=== PATIENT | female | born 1945 | race Caucasian/White ===

== ENCOUNTER 2020-07-01 21:54 | Inpatient (IN) | payer MEDICARE, OTHER ==
--- NOTE | 2020-07-01 22:16 | RAD ---
XR Chest 1 View Portable History: Chest pain Comparison: None. Findings: Lungs are clear. No pneumothorax or effusion. Cardiac silhouette and mediastinal contours a re within normal limits. No acute osseous abnormality. Impression: No acute intrathoracic abnormality.
[2020-07-01 22:19] LABS: #Basophils 0.2 thou/uL (0.0-0.2); #Eosinphils 0.5 thou/uL (0.0-0.7); #Lymphocytes 2.4 thou/uL (1.20-3.40); #Monocytes 0.7 thou/uL (0.11-0.59); #Neutrophils 7.8 thou/uL (1.40-6.50); %Basophils 1.5 % (0.0-1.0); %Eosinophils 4.1 % (0.0-10.0); %Lymphocytes 20.8 % (21.0-51.0); %Monocytes 6.4 % (0.0-10.0); %Neutrophils 67.2 % (42.0-75.0); Hemoglobin 9.8 g/dL (12.0-16.0); Mean Corpuscular HGB CONC 30.9 g/dL (32.0-36.0); Mean Corpuscular Hemoglobin 24.3 pg (27.0-31.0); Mean Corpuscular Volume 78.6 fL (78.0-98.0); Mean Platelet Volume 9.7 fL (7.4-10.4); Platelet Count 296 thou/uL (130-400); RBC Distribution Width 15.4 % (11.5-14.5); Red Blood Cell (RBC) Count 4.04 mill/uL (4.20-5.40); White Blood Cell (WBC) Count 11.6 thou/uL (4.8-10.8)
[2020-07-01 22:39] LABS: ALT (SGPT) 14 U/L (8-55); AST (SGOT) 16 U/L (5-34); Albumin 3.4 g/dL (3.4-4.8); Alkaline Phosphatase 126 U/L (40-110); Anion Gap 13 mmol/L (10-20); BUN (Urea Nitrogen) 15 mg/dL (9.8-20.1); Bilirubin, Total 0.2 mg/dL (0.2-1.2); Calc. Creatinine Clearance 0 mL/min (70-130); Calcium 8.7 mg/dL (7.8-10.44); Carbon Dioxide 27 mmol/L (23-31); Chloride 107 mmol/L (98-107); Globulin 2.4 g/dL (2.4-3.5); Glucose 114 mg/dL (83-110); Potassium 4.2 mmol/L (3.5-5.1); Protein, Total 5.8 g/dL (6.0-8.3); Sodium 143 mmol/L (136-145)
[2020-07-01] MEDS ORDERED: Acetaminophen 500 MG TAB ONE (23:20)
[2020-07-01] MEDS ORDERED: Metoprolol Tartrate 5 MG/5 ML VIAL ONE (23:26)
--- NOTE | 2020-07-02 00:17 | PDOC.HHP ---
Hospitalist HPI - History of Present Illness Heart palpitations History of Present Illness: Patient is a 75-year-old female with a past medical history significant for hypothyroidism, hyperlipidemia and obesity that presents to the emergency department for the above complaint. The patient reports feeling her heart racing on 2 different occasions today. She reports the first episode was in the afternoon and the second episode was at about 8:00 in the evening while sitting on the couch at home. When she felt her pulse, it was approximately 140 beats per minute. The patient reports some associated lightheadedness and headache. Denies vertigo or syncope. She says the headache is band-like and denies any changes in vision or speech. She denies any focal motor deficits to her extremities. She checked her blood pressure and reports that the top number was in the [id number]. She does not have a history of hypertension. She denies any chest pain or swelling to her lower extremities. She denies any shortness of breath, cough or wheezing. She has no history of DVT/PE. She also reports feeling fatigued over the past 3 to 4 months. She says that after taking a shower sometimes she feels tired and has to rest. She says that this does not happen every day, but it is happening often. She says since Covid, she has been staying at home and thought it was from being deconditioned. She denies any recent fever or illness. She has no known Covid contacts. Denies any abdominal pain, nausea, vomiting, diarrhea, hematochezia/melena. She denies any dysuria or hematuria. ED Course: VITAL SIGNS TueJul 01, 2020 22:01 JAMES Murphy Cory BP: 178/87, MAP: 117, Pulse: 108, Resp: 24, Temp: 97.7 (Oral), Pain: 0, O2 sat: 100 on (Room Air), Time: 07/01/2020 22:01. VITAL SIGNS TueJul 01, 2020 23:24 JAMES Lindsey Alicia BP: 161/84, Pulse: 81, Resp: 22, Pain: 0, O2 sat: 100 on (Room Air), Time: 07/01/2020 23:24. VITAL SIGNS TueJul 02, 2020 00:00 JAMES Lindsey Alicia BP: 148/67, Pulse: 69, Resp: 19, Temp: 98.2 (Oral), Pain: 0, O2 sat: 100 on (Room Air), Time: 07/02/2020 00:00. Medications: metoprolol tartrate intravenous 5 mg IV Push Given 23:32 07/01/2020 Tylenol Extra Strength 1 g Oral Given 23:28 07/01/2020 Hospitalist ROS - Review of Systems All other systems reviewed; all pertinent +/- noted in HPI/Subj - Medication Medications: aspirin oral TABLET : Strength - 81 mg : ORAL Patient Dose: 1 tab(s) Oral once a day. Synthroid oral TABLET : Strength - 100 mcg : ORAL Patient Dose: 100 mcg Oral once a day. atorvastatin TABLET : Strength - 40 mg : ORAL Patient Dose: 20 mg Oral once a day (at bedtime). Allergies: NKDA Hospitalist History - Past Medical History Cardiac: reports: Hyperlipidemia ENT: reports: Other (Bilateral eye blindness) Endocrine: reports: Hypothyroidism (Status post thyroidectomy) - Past Surgical History Past Surgical History: reports: Cholecystectomy, Other (Prolapse vagina, rectocele, hysterectomy and oophorectomy, left eye surgery, thyroidectomy) - Family History Family History: denies: cardiac disorder, cerebrovascular accident - Social History Smoking Status: Never smoker Alcohol: reports: None Drugs: reports: none Living Situation: With Family Activity level: uses cane/walker - Exam General Appearance: NAD, awake alert. negative: ill appearing Eye: anicteric sclera ENT: normocephalic atraumatic, moist mucosa Neck: supple, symmetric Heart: RRR, no gallops, no rubs, normal peripheral pulses, II/IV Respiratory: CTAB, no wheezes, no rales, no ronchi, no tachypnea Gastrointestinal: soft, non-tender, non-distended, normal bowel sounds, no bruit, no guarding, no rigidity Extremities: no cyanosis, 1+ LE edema Skin: no rashes Neurological: no focal deficits Musculoskeletal: normal tone, normal strength Psychiatric: normal affect, A&O x 3 Hospitalist Results - Labs Result Diagrams: 07/01/20 22:04 07/01/20 22:04 Lab results: WBC 11.6 thou/uL (4.8-10.8) H 07/01/20 22:04 Hgb 9.8 g/dL (12.0-16.0) L 07/01/20 22:04 Hct 31.8 % (36.0-47.0) L 07/01/20 22:04 MCV 78.6 fL (78.0-98.0) 07/01/20 22:04 Plt Count 296 thou/uL (130-400) 07/01/20 22:04 Neutrophils % 67.2 % (42.0-75.0) 07/01/20 22:04 Sodium 143 mmol/L (136-145) 07/01/20 22:04 Potassium 4.2 mmol/L (3.5-5.1) 07/01/20 22:04 Chloride 107 mmol/L (98-107) 07/01/20 22:04 Carbon Dioxide 27 mmol/L (23-31) 07/01/20 22:04 BUN 15 mg/dL (9.8-20.1) 07/01/20 22:04 Creatinine 0.75 mg/dL (0.6-1.1) 07/01/20 22:04 Glucose 114 mg/dL (83-110) H 07/01/20 22:04 Calcium 8.7 mg/dL (7.8-10.44) 07/01/20 22:04 Total Bilirubin 0.2 mg/dL (0.2-1.2) 07/01/20 22:04 AST 16 U/L (5-34) 07/01/20 22:04 ALT 14 U/L (8-55) 07/01/20 22:04 Alkaline Phosphatase 126 U/L (40-110) H 07/01/20 22:04 Troponin I Less than 0.010 ng/mL (< 0.028) 07/01/20 22:04 B-Natriuretic Peptide 72.1 pg/mL (0-100) 07/01/20 22:04 Serum Total Protein 5.8 g/dL (6.0-8.3) L 07/01/20 22:04 Albumin 3.4 g/dL (3.4-4.8) 07/01/20 22:04 - EKG Interpretation EK lead EKG interpreted by Emergency Department Physician at time of study, 12 lead EKG shows, sinus tachycardia, Rate (beats per minute): 104, with no ectopics, Conduction normal, ST segments normal, T waves normal, Free Soil normal, Clinical impression: Normal EKG. - Radiology Interpretation Chest x-ray Status: report reviewed by me Additional Comment: Impression: No acute intrathoracic abnormality. Hospitalist H&P A/P - Problem (1) Tachycardia Code(s): R00.0 - TACHYCARDIA, UNSPECIFIED Status: Acute (2) Heart palpitations Code(s): R00.2 - PALPITATIONS Status: Acute (3) HLD (hyperlipidemia) Code(s): E78.5 - HYPERLIPIDEMIA, UNSPECIFIED Status: Chronic (4) Morbid obesity with BMI of 40.0-44.9, adult Code(s): E66.01 - MORBID (SEVERE) OBESITY DUE TO EXCESS CALORIES; Z68.41 - BODY MASS INDEX [BMI]40.0-44.9, ADULT Status: Chronic (5) Hypothyroidism Code(s): E03.9 - HYPOTHYROIDISM, UNSPECIFIED Status: Chronic - Plan Plan: 75/F with PMH hypothyroidism presents for heart palpitations. Admit to telemetry floor, inpatient status. Expected length of stay greater than 2 midnights. Presented hypertensive, tachycardic, tachypneic, NL SPO2, afebrile. EKG sinus tachycardia nonspecific T wave changes. CXR no acute process. Initial troponin negative, BNP 72.1, TSH 3.22. WBC 11.6, Hgb 9.8, HCT 31.8, platelets 296. #Tachycardia Wells PE score 1.5, low risk Responded to metoprolol 5 mg IVP x1 dose in ER. Trend troponins. Give ASA 243 mg. Check mag level, UA. Obtain echocardiogram. Consult cardiology. #Heart palpitations Likely related to problem #1. #HLD Restart home dose atorvastatin. #Morbid Obesity Chronic. #Hypothyroidism Status post thyroidectomy. TSH unremarkable. Restart home dose Synthroid. Lovenox for DVT prophylaxis. Pepcid for GI prophylaxis. Full code. Discussed the case with Dr. Dominic Turner.
[2020-07-02 01:36] LABS: Troponin I 0.012 ng/mL (< 0.028)
[2020-07-02] MEDS ORDERED: Sodium Chloride 0.9% 1,000 ML IV SCH (01:45)
[2020-07-02] MEDS ORDERED: Ondansetron PF 4 MG/2 ML Vial IVP PRN ×2 (01:45→01:56)
[2020-07-02] MEDS ORDERED: Acetaminophen 325 MG TAB PO PRN (01:45)
[2020-07-02] MEDS ORDERED: Ondansetron ODT 4 MG TAB SL PRN (01:45)
[2020-07-02] MEDS ORDERED: Senokot S 8.6-50 MG TAB PO PRN (01:56)
[2020-07-02] MEDS ORDERED: Ondansetron ODT 4 MG TAB PO PRN (01:56)
[2020-07-02] MEDS ORDERED: Calcium Carbonate 500 MG ChewTAB PO PRN (01:56)
[2020-07-02 02:11] VITALS: BMI 42.0
[2020-07-02] MEDS ORDERED: Aspirin Chewable 81 MG TAB PO SCH (02:15)
[2020-07-02 02:35] LABS: Bacteria/HPF 1+ HPF (None Seen); Bilirubin Negative (Negative); Blood, Urine Negative (Negative); Clarity Clear (Clear); Glucose, Urine (Dipstick) Normal (Negative); Ketone, Urine Negative (Negative); Leukocyte Negative Leu/uL (Negative); Nitrite Negative (Negative); Protein, Urine (Dipstick) Negative (Neg-Trace); RBC/HPF 0-3 HPF (0-3); Specific Gravity, Urine 1.011 (1.002-1.036); Squamous Epithelial 0-3 HPF (0-3); Urobilinogen Normal mg/dL (Less than 2); WBC/HPF 0-3 HPF (0-3)
[2020-07-02 05:00] LABS: Anion Gap 11 mmol/L (10-20); BUN (Urea Nitrogen) 14 mg/dL (9.8-20.1); Calc. Creatinine Clearance 118 mL/min (70-130); Calcium 8.7 mg/dL (7.8-10.44); Carbon Dioxide 28 mmol/L (23-31); Chloride 107 mmol/L (98-107); Glucose 118 mg/dL (83-110); Potassium 4.1 mmol/L (3.5-5.1); Sodium 142 mmol/L (136-145)
[2020-07-02 05:04] LABS: Troponin I 0.012 ng/mL (< 0.028)
[2020-07-02 05:19] LABS: #Basophils 0.1 thou/uL (0.0-0.2); #Eosinphils 0.4 thou/uL (0.0-0.7); #Lymphocytes 1.6 thou/uL (1.20-3.40); #Monocytes 0.7 thou/uL (0.11-0.59); #Neutrophils 6.8 thou/uL (1.40-6.50); %Basophils 1.2 % (0.0-1.0); %Eosinophils 4.4 % (0.0-10.0); %Monocytes 6.8 % (0.0-10.0); %Neutrophils 70.6 % (42.0-75.0); Mean Corpuscular HGB CONC 30.9 g/dL (32.0-36.0); Mean Corpuscular Hemoglobin 24.7 pg (27.0-31.0); Mean Corpuscular Volume 79.9 fL (78.0-98.0); Mean Platelet Volume 10.2 fL (7.4-10.4); Platelet Count 259 thou/uL (130-400); RBC Distribution Width 15.3 % (11.5-14.5); Red Blood Cell (RBC) Count 3.65 mill/uL (4.20-5.40); White Blood Cell (WBC) Count 9.7 thou/uL (4.8-10.8)
[2020-07-02 09:19] LABS: SARS-CoV-2 MS2 Positive; SARS-CoV-2 N Gene Negative; SARS-CoV-2 S Gene Negative; SARS-CoV-2 by NAA Not Detected (NotDetected); SARS-CoV-2 orf1ab Negative
[2020-07-02 10:01] LABS: Iron Binding Capacity, Total 326 mcg/dL (265-497)
[2020-07-02 10:02] LABS: Iron 15 ug/dL (50-170)
[2020-07-02 10:20] LABS: Ferritin 4.38 ng/mL (10-291); Thyroid Stimulating Hormone 2.3302 uIU/mL (0.35-4.94)
[2020-07-02] MEDS: Famotidine 20 MG TAB PO SCH ×2 (10:36→21:32)
[2020-07-02 11:23] LABS: Free T4 (Free Thyroxine) 1.01 ng/dL (0.70-1.48)
[2020-07-02] MEDS: Enoxaparin Sodium 40 MG/0.4 ML SYRINGE SC SCH ×2 (11:26→13:15)
[2020-07-02] MEDS ORDERED: Iopamidol-370 76% 500 ML 1 ML ONE (13:03)
[2020-07-02] MEDS ORDERED: Iron, Sodium Ferric Gluconate 250 MG in Sodium Chloride 0.9% 100 ML IVPB SCH (13:15)
--- NOTE | 2020-07-02 13:46 | CON ---
DATE OF CONSULTATION: 07/02/2020 REASON FOR CONSULTATION: Palpitations and tachycardia. HISTORY OF PRESENT ILLNESS: Ms. Astrid Amador is a 75-year-old woman. She came to the hospital last night because she felt her heart racing and was aware of her heart beating. Her took her blood pressure at home and one of the blood pressures was high and also the heart rate was 140. The other blood pressures, however, and the heart rate was in the low 100s. He had a Kardia device at home, and apparently he was told that it was not atrial fibrillation, but the rate on the one blood pressure cuff was 140. When she got here, heart rate was in the low 100s. She did not have any chest pain. She said she is just tired now. She is up most of the night, but never did have any chest pain or pressure. PAST MEDICAL HISTORY: History of hypertension. MEDICATIONS: 1. Atorvastatin. 2. Levothyroxine. 3. Aspirin. 4. Calcium. 5. She received metoprolol 5 mg IV in the emergency room last night apparently for sinus tachycardia and felt better. REVIEW OF SYSTEMS: CONSTITUTIONAL: No significant weight gain or loss. She is extremely overweight. VISION: No changes. HEARING: No changes. PULMONARY: No cough or wheezing. GASTROINTESTINAL: No nausea, vomiting, or diarrhea. SKIN: No rashes. NEUROLOGIC: No unilateral weakness or numbness. PSYCHIATRIC: No unusual depression or anxiety. PHYSICAL EXAMINATION: GENERAL: This is a pleasant woman, 5 feet 2 inches tall, 229 pounds, BMI estimated at 42. VITAL SIGNS: Blood pressure is 143/62 and 137/68, pulse is in the 70s and last night it was over 100. EYES: Sclerae nonicteric. MOUTH: Mucous membranes moist. NECK: Supple. No lymphadenopathy. LUNGS: Clear. CARDIAC: Normal S1 and normal S2. There is no murmur, rub, or gallop. Heart sounds are somewhat distant. ABDOMEN: Soft, nontender. She is obese. EXTREMITIES: No clubbing or cyanosis. There is no edema, but the pedal pulses are difficult to feel due to her obesity. PERTINENT LABORATORY DATA: The troponin levels were negative. The TSH was 2.3. She was anemic with a hemoglobin of 9 and a very low ferritin level of 4.38. EKG showed sinus tachycardia. ASSESSMENT: 1. Palpitations. 2. Sinus tachycardia. 3. One reading of a heart rate of 140 on a blood pressure cuff, unknown if that is really accurate, that is what the blood pressure report read. 4. Iron-deficiency anemia. PLAN: 1. Give her intravenous iron. 2. Echocardiogram was done and the echocardiogram showed ejection fraction 55% to 60% with frequent PACs. 3. In view of unexplained tachycardia, I think we should do a CT pulmonary angiogram to ensure there is no pulmonary embolism. 4. We will need evaluation to see why she has iron-deficiency anemia, that could be done as an outpatient. 5. Outpatient stress testing with PET scan will probably the best test for ischemia based on her BMI over 42. Routine stress test is likely to show artifact. Anyway, also her cardiac enzymes are negative. She never had any chest pain. If she does well, potentially could go home on some beta blockers and follow up as an outpatient. Job ID: [id number]
--- NOTE | 2020-07-02 14:02 | CT ---
CTA OF THE CHEST WITH CONTRAST: Date: 07/02/2020 HISTORY: Shortness of breath and elevated blood pressure. TECHNIQUE: Multiple contiguous axial images were obtained in a CTA of the chest with contrast per pulmonary embo lism protocol. 3D oblique MIP reformats and direct coronal reformats were performed. FINDINGS: The pulmonary arteries are well opacified without filling defects to suggest pulmonary emboli. The he art is normal in size. Calcifications are seen in the coronary arteries. No hilar or mediastinal lymp hadenopathy are seen. Atherosclerotic calcifications are seen in the aorta. Soft tissue density in th e anterior mediastinum is triangular in shape and likely represents thyroid tissue that is substernal in location. No pneumothorax or pleural effusions are seen. No suspicious pulmonary nodules are seen. No focal in filtrates are present. Degenerative changes are seen in the spine. The visualized subdiaphragmatic structures are unremarkab le. The chest wall soft tissues are unremarkable. IMPRESSION: No evidence of pulmonary thromboembolism or acute intrathoracic abnormality. POS: EAA
--- NOTE | 2020-07-02 14:22 | PDOC.HOSPP ---
- Subjective Encounter Date: 07/02/20 Encounter Time: 11:00 Subjective: He was seen and examined in bed. She was comfortable. Denied any ongoing palpitations, chest pain or shortness of breath. She is legally blind - Objective Vital Signs & Weight: Vital Signs (12 hours) Temp Pulse Resp BP Pulse Ox 07/02/20 10:32 97.8 F 77 16 137/68 98 07/02/20 04:15 98.2 F 72 20 143/62 H 99 07/02/20 03:00 96 Weight Weight 229 lb 14.4 oz I&O: 07/01/20 07/02/20 07/03/20 06:59 06:59 06:59 Intake Total 120 240 Output Total 600 Balance -480 240 Result Diagrams: 07/02/20 04:05 07/02/20 04:04 Hospitalist ROS - Medication Medications: Active Medications Generic Name Dose Route Start Last Admin Trade Name Freq PRN Reason Stop Dose Admin Enoxaparin Sodium 40 mg 07/02/20 09:00 07/02/20 13:15 Enoxaparin Sodium 40 Mg/0.4 Ml Syringe SC 40 mg 899 OBED Administration Famotidine 20 mg 07/02/20 09:00 07/02/20 10:36 Famotidine 20 Mg Tab PO 20 mg BID OBED Administration - Exam General Appearance: awake alert ENT: normocephalic atraumatic, no oropharyngeal lesions Heart: RRR, no murmur, no gallops, no rubs Respiratory: CTAB, no wheezes, no rales, no ronchi Gastrointestinal: soft, non-tender, non-distended, normal bowel sounds Extremities: no cyanosis, no clubbing Neurological - other findings: Blind, otherwise cranial nerves intact Psychiatric: normal affect, normal behavior, A&O x 3 Hosp A/P - Plan This 75-year-old female who is blind, has hypothyroidism here on account of palpitations. No concerning arrhythmias on telemetry and she is in normal normal sinus rhythm this morning. She is anemic with severe iron deficiency. She received iron and GI follow-up. Cardiology evaluated ordered a CTA to rule out PE which was negative. Plan to put her on beta-blockers for subsequent follow-up. Palpitations Currently heart rate within normal range. Anticoagulated pulmonary related to anemia PE ruled out with CTAcardiology evaluated Echocardiogram shows no acute abnormality. Iron deficiency anemia Possibly GI loss She is receiving iron GI consult Hypothyroidism Continue levothyroxine Free T4 T3 and TSH within normal limits. CODE STATUSfull code DVT prophylaxis Lovenox
--- NOTE | 2020-07-02 18:54 | CON ---
DATE OF CONSULTATION: REASON FOR CONSULTATION: Anemia. HISTORY OF PRESENT ILLNESS: Ms. Astrid Amador is a very pleasant 75-year-old female, who has been living in [place] for 3 years. The patient has lived in [place] before. She still goes back to see her primary care doctor who is in [place] in [place]. The patient came to the ER because of history of rapid heart rate and tachycardia. The patient had 2 episodes of this rapid heart rate yesterday. She has had no previous episodes. She had no chest pain. No dyspnea. The EKG basically shows sinus tachycardia. She had been seen by Dr. Joanna Milan for Cardiology input. Unfortunately, I am unable to access this consultation report due to some problem with the [employer] system at the present time. The patient is a very pleasant 75-year-old female with history of visual impairment, which has been going on for 30 years. She cannot see at all. Apparently, she had traveled all over the country trying to find the reason for the visual impairment, but nobody could find out the reason. The patient has history of hypothyroidism, which was iatrogenic following thyroidectomy. Has history also of hyperlipidemia. There is no prior history of any anemia. She cannot tell me whether she has any black stool, rectal bleeding because of the stool pattern. She also tells me she had a colonoscopy less than 2 years ago in [place] and was told to be negative. She had a very positive history of H pylori gastritis and was treated with antibiotics more than 30 years ago. At the present time, she really has no specific GI symptoms. Denies abdominal pain, dyspepsia, indigestion, or dysphagia. She has no abdominal pain. Her anemia is mild and did not cause any of the above symptoms, although she had tachycardia, which may be unrelated. She had no relevant history. ALLERGIES: NONE. SOCIAL HISTORY: She is . Does not smoke or drink alcohol. MEDICAL ILLNESS: 1. Iatrogenic hypothyroidism, on replacement therapy. 2. Hyperlipidemia. 3. Vitamin D deficiency. 4. No history of hypertension, heart disease, lung disease, diabetes. MEDICATIONS LIST: Include: 1. Synthroid. 2. Atorvastatin. 3. Aspirin. 4. Vitamin D. SURGERIES: 1. Open cholecystectomy more than 30 years ago. 2. Hysterectomy. 3. Thyroidectomy for noncancerous goiter more than 30 years ago. 4. History of colonoscopy. FAMILY HISTORY: Father of metastatic melanoma. Sister with multiple myeloma, status post stem cell transplant and she lives here in [place]. Medications reviewed. REVIEW OF SYSTEMS: 10-point system review. CONSTITUTIONAL: Had good exercise tolerance. No fever. No weight loss. HEAD: No chronic headache. No syncope. EYES: Impaired vision, legally blind. EARS, NOSE, THROAT: No ear pain. No hearing loss. No discharge. Nose; no nosebleed. Throat; no sore throat. No dysphagia or odynophagia. NECK: No pain or stiffness. LUNGS: No chronic coughing, hemoptysis, dyspnea. CARDIOVASCULAR SYSTEM: No chest pain and had palpitation, that is why she is in the hospital. No dyspnea, orthopnea, or PND. GI: No abdominal pain, nausea, or vomiting. Her bowel movements regular. : No dysuria or hematuria. MUSCULOSKELETAL: Not relevant. NEUROLOGIC: Not relevant. ENDOCRINE: Not relevant. HEMATOLOGICAL: Not relevant. PHYSICAL EXAMINATION: GENERAL: She is very pleasant female. She is a good historian. She is awake, alert, and communicative. VITAL SIGNS: Afebrile. Pulse is 77, blood pressure 137/68. HEENT: Conjunctivae clear. NECK: Supple. CARDIOVASCULAR SYSTEM: Normal heart sounds. LUNGS: Clear to auscultation. ABDOMEN: Soft. Abdomen shows a right upper quadrant scar from previous colon surgery. Abdomen is nontender. No organomegaly. No masses. EXTREMITIES: Reveal 1 to 2+ edema. SUPERVISOR FACEPIECE LINE: Grossly within normal limits. LABORATORY DATA: Shows mild anemia. WBC 11,600, hemoglobin 9.8, hematocrit 31.8, MCV 78.6, platelet count 296,000, polymorphs 67, lymphocytes 20, monocytes 6. Today, hemoglobin 9, hematocrit 29.2, platelet count 209,000. Chem-7 is normal. BUN is 14, creatinine 0.68, glucose 118, calcium 8.7, magnesium 2. Iron is low at 15, TIBC is 326, iron saturation is 5. TSH 2.3302. CLINICAL IMPRESSION: 1. A 75-year-old female, hospitalized for palpitation. Her symptoms resolved at the present time. She has no chest pain. No dyspnea, orthopnea, or PND. and is undergoing Cardiology evaluation. 2. Anemia, mild, most likely is not causing symptoms. She has a low iron, high TIBC, indicative of iron deficiency. 3. Hypothyroidism, iatrogenic. 4. Hyperlipidemia. 5. Previous colonoscopy in 2018 or 2019. 6. Legally blind. I had a long talk with the patient and her .. She has no history of overt bleeding. I will probably follow up the labs. Also recommended a outpatient EGD. RECOMMENDATION: As follows: 1. Stool for occult blood. 2. Iron supplement. 3. No need for colonoscopy as she had a colonoscopy in 2019 or 2018. Also, await Cardiology input and see what the plan is. Job ID: [id number] [facility] HOSPITALEstevan
[2020-07-02] MEDS ORDERED: Aspirin 81 mg Enteric Coated Tablet PO SCH (21:00)
[2020-07-02] MEDS ORDERED: Atorvastatin Calcium 20 MG TAB PO SCH (21:00)
[2020-07-02] MEDS: Iron, Sodium Ferric Gluconate 250 MG in Sodium Chloride 0.9% 100 ML IVPB SCH (21:32)
[2020-07-03 04:56] LABS: #Basophils 0.2 thou/uL (0.0-0.2); #Eosinphils 0.4 thou/uL (0.0-0.7); #Lymphocytes 1.5 thou/uL (1.20-3.40); #Monocytes 0.5 thou/uL (0.11-0.59); #Neutrophils 6.6 thou/uL (1.40-6.50); %Basophils 1.6 % (0.0-1.0); %Eosinophils 4.9 % (0.0-10.0); %Lymphocytes 16.7 % (21.0-51.0); %Monocytes 5.6 % (0.0-10.0); %Neutrophils 71.2 % (42.0-75.0); Hemoglobin 9.7 g/dL (12.0-16.0); Mean Corpuscular HGB CONC 31.1 g/dL (32.0-36.0); Mean Corpuscular Hemoglobin 24.7 pg (27.0-31.0); Mean Corpuscular Volume 79.6 fL (78.0-98.0); Mean Platelet Volume 9.7 fL (7.4-10.4); Platelet Count 244 thou/uL (130-400); RBC Distribution Width 15.3 % (11.5-14.5); White Blood Cell (WBC) Count 9.2 thou/uL (4.8-10.8)
[2020-07-03] MEDS ORDERED: Levothyroxine Sodium 100 MCG TAB PO SCH (06:00)
[2020-07-03] MEDS ORDERED: Cholecalciferol (Vitamin D3) 400 UNITS TAB PO SCH (09:00)
[2020-07-03] MEDS ORDERED: Calcium Carbonate 500 MG TAB PO SCH (09:00)
[2020-07-03] MEDS: Enoxaparin Sodium 40 MG/0.4 ML SYRINGE SC SCH (09:37)
[2020-07-03] MEDS: Famotidine 20 MG TAB PO SCH (09:38)
[2020-07-03] MEDS: Iron, Sodium Ferric Gluconate 250 MG in Sodium Chloride 0.9% 100 ML IVPB SCH (09:38)
[2020-07-03 15:59] VITALS: BP 145/69; TEMP 98.5
[2020-07-03] MEDS ORDERED: Metoprolol Tartrate 25 MG TAB PO SCH (21:00)
--- NOTE | 2020-07-04 07:42 | CON ---
DATE OF CONSULTATION: 07/03/2020 HISTORY OF PRESENT ILLNESS: [place] [facility] [place] Electrophysiology consultation. Her problems are; 1. Paroxysmal palpitations with telemetry suggestive of paroxysmal atrial tachycardia. 2. Iron deficiency anemia with hemoglobin at 9, lowest. 3. Preserved LVEF of 55% to 60%, mild left atrial enlargement, mild MR, [id number] AI, and mild TR on echo 07/02/2020. 4. Hypothyroidism on replacement. 5. History of legal blindness. 6. Elevated BMI. ALLERGIES: NONE. MEDICATIONS: At home include; 1. Aspirin. 2. Synthroid. 3. Lipitor. SUBJECTIVE: Ms. Amador is here due to recurrent palpitations, heart racing noted up to two occasions on the day of admission. Both were minimally provoked with mild ambulation or just resting. The heart rates can go up to 140 beats per minute and also lightheadedness and headache was noted. Denies syncope. No bleeding is noted. No stroke-like symptoms noted. She denies chest pain to suggest angina. She has no PND, orthopnea, or lower extremity edema to suggest fluid overload. There is no fever, chills, or cough currently. REVIEW OF SYSTEMS: Rest of 12-point review of system otherwise unremarkable. PAST MEDICAL HISTORY: As above she has no prior cardiac history. No prior history of palpitations either. SOCIAL HISTORY: The patient is , in the room. Denies smoking, EtOH, or drug use. FAMILY HISTORY: No significant cardiac history per family. OBJECTIVE DATA: VITAL SIGNS: Blood pressure is 134/64, heart rate 70 and sinus, respirations 16, and temperature 97.7 degrees Fahrenheit. GENERAL: Alert and oriented woman with elevated BMI, in no apparent distress. She is legally blind. NECK: Supple. Jugular veins not distended. CHEST: Coarse without crackles. HEART: Sounds are regular to rate and rhythm. No murmur or gallop. ABDOMEN: Benign. Bowel sounds positive. EXTREMITIES: Lower extremities without edema, clubbing, or cyanosis. Pulses are adequate. NEUROLOGIC: The patient is nonfocal. MUSCULOSKELETAL: Without joint swelling or deformity. SKIN: Without rash. DATABASE: EKG is reviewed. Initial EKG from ER on 07/01/2020 shows sinus rhythm. No significant ST-T changes. Subsequent EKGs reveal paroxysms of atrial tachycardia with rapid initiation and rapid resolution back to sinus rhythm. The episode rate about 140 beats per minute. The underlying P-waves are difficult to visualize, on occasion atrial flutter may be present. LABORATORY DATA: White cell count 9.2, hemoglobin 9.7, and platelet count is 244. Sodium 142, potassium 4.1, BUN is 14, and creatinine 0.68. Iron saturation 5, which is low. Iron levels are lower at 15. TSH is 2.33. Free T4 is 1 and free T3 is 2.14. Urine is normal. COVID serology is negative. Chest CT negative for PE. Some calcification of the coronary arteries are seen. The echo as above. ASSESSMENT AND PLAN: Ms. Amador is a very pleasant 75-year-old woman with paroxysmal atrial arrhythmias. They are rapid, but not sustained, seems to be somewhat provoked by activities and exertion. This is a new finding, has now been present only for the last week. There are no obvious provoking factors are noted except for her baseline mild iron deficiency anemia. She is being corrected with transfusion currently. I discussed the potential mechanism of her atrial arrhythmias. She could develop multi- arrhythmias. Anemia could potentially exacerbate these issues. I think she would overall benefit from adding beta juwan therapy to her current regimen. We will initiate that today. For now, hence the anemia, which is not completely worked up yet, I will not initiate oral anticoagulation and she has very short episodes of atrial fibrillation. Her stroke is still relatively low. Her overall CHADS-VASc score is 3 due to age and her gender only. Should the beta-juwan alone would not be suffice to suppress arrhythmias. If heart rates tolerated, she could be added to take an antiarrhythmic agent, Multaq versus class 1 C agents could be considered if no coronary artery disease is suspected. We also discussed other modalities of treatment like ablations, but for now I think medical therapy would be most reasonable for now. Weight loss is strongly encouraged. We will follow with you while in the hospital and see her as an outpatient as well. Thank you again for letting me participate in the care of this patient. Job ID: [id number]
--- NOTE | 2020-07-04 09:42 | PDOC.DS.DS ---
Provider - Provider Date of Admission: 07/02/20 00:12 Date of Discharge: 07/03/20 Admitting Provider: Dominic Maher MD Consultations: Cardiology, Other (Electrophysiology) Primary Care Physician: OUT OF TOWN Course - Hospital Course Hospital Course: This 75-year-old female who is blind, has hypothyroidism who presented with palpitations. Chest x-ray was negative. CTA of the chest was negative. She was noted to have some mild anemia with an initial hemoglobin of 9.8. Troponins were negative. Chemistries were otherwise largely unremarkable. Echocardiogram was obtained and revealed an ejection fraction of 55 to 60% with frequent PACs. She was seen in consultation by cardiology. Recommendation was made for evaluation of the anemia. I was also recommended that the patient have outpatient follow-up for cardiac PET due to her obesity and concern for potential artifact on stress testing. Subsequently the patient did have an episode of tachycardia on the monitor concerning for A. fib/flutter. With that the patient was subsequently seen in consultation by electrophysiology. Given the patient's anemia the recommendation was to forego anticoagulation. Recommendation was for beta- blockade. Depending on how she tolerated that and the results then consideration could be given to an antiarrhythmic agent such as Multaq or a class Ic agent. Patient's anemia work-up did reveal evidence of iron deficiency. GI was consulted. Patient had a history of prior endoscopies which were unremarkable. She received IV iron. The plan was for continued oral iron supplementation and outpatient follow-up with GI. With this work-up the patient was felt to be stable for discharge home with outpatient follow-up. She was to have an outpatient heart monitor sent to her by Dr. Benton. She will have follow-up with Dr. Mlian in 2 weeks. Plan was confirmed with Dr. Milan. Hypothyroidism Continued levothyroxine Free T4 T3 and TSH within normal limits. CODE STATUSfull code DVT prophylaxis Lovenox Resuscitation Status: 07/02/20 01:56 Resuscitation Status Routine Co-Sign Provider: Resuscitation Status: FULL: Full Resuscitation Discussed with: patient - Labs Lab Results: 07/03/20 04:14 07/02/20 04:04 Abnormal Lab Results - Last 48 hrs 07/02/20 09:18: Iron 15 L, % Saturation 5 L 07/02/20 09:18: Ferritin 4.38 L 07/03/20 04:14: RBC 3.90 L, Hgb 9.7 L, Hct 31.1 L, MCH 24.7 L, MCHC 31.1 L, RDW 15.3 H, Lymphocytes % 16.7 L, Basophils % 1.6 H, Neutrophils # 6.6 H Microbiology - Entire Visit 07/03/20 09:20 Stool Stool Occult Blood (YUMIKO) - Final - Physical Exam Vitals: Weight Weight 227 lb 1.6 oz Physical Exam: The patient was seen and examined on the day of discharge. Problem - Problem (1) Atrial fibrillation with rapid ventricular response Code(s): I48.91 - UNSPECIFIED ATRIAL FIBRILLATION Status: Acute (2) Heart palpitations Code(s): R00.2 - PALPITATIONS Status: Acute (3) Tachycardia Code(s): R00.0 - TACHYCARDIA, UNSPECIFIED Status: Acute (4) HLD (hyperlipidemia) Code(s): E78.5 - HYPERLIPIDEMIA, UNSPECIFIED Status: Chronic (5) Hypothyroidism Code(s): E03.9 - HYPOTHYROIDISM, UNSPECIFIED Status: Chronic (6) Morbid obesity with BMI of 40.0-44.9, adult Code(s): E66.01 - MORBID (SEVERE) OBESITY DUE TO EXCESS CALORIES; Z68.41 - BODY MASS INDEX [BMI]40.0-44.9, ADULT Status: Chronic - Time spent with Patient (mins): 40 Plan - Discharge Medications Prescriptions: Ferrous Sulfate 325 mg PO DAILY #30 tablet Metoprolol Tartrate 25 mg PO BID #60 tab Home Medications: Medication Instructions Recorded Confirmed Type Aspirin [Ecotrin Low Strength] 81 mg PO HS 07/02/20 07/02/20 History Atorvastatin Calcium 20 mg PO HS 07/02/20 07/02/20 History Calcium Carbonate [Calcium] 500 mg PO DAILY 07/02/20 07/02/20 History Cholecalciferol (Vitamin D3) 400 unit PO DAILY 07/02/20 07/02/20 History [Vitamin D] Levothyroxine Sodium [Synthroid] 100 mcg PO DAILY 07/02/20 07/02/20 History Ferrous Sulfate 325 mg PO DAILY #30 tablet 07/03/20 Rx Metoprolol Tartrate 25 mg PO BID #60 tab 07/03/20 Rx Allergies: No Known Allergies Allergy (Unverified 07/02/20 01:31) - Discharge Instructions Activity:: Activity as Tolerated Nourishment:: Heart Healthy Diet - Follow up Plan Referrals: [facility],OUT OF [Primary Care Provider] - Cass Mckeon MD [Active] - 14 Days (Please follow-up within 2 weeks.) Joanna Milan MD [Active] - 14 Days (Please follow-up within 2 weeks.) Disposition: HOME Quality - Care Measures CORE MEASURES:: N/A
== END 2020-07-03 18:05 | disposition home or self-care (01) | DRG 309 ==
LOC: ERS 21:54 → 2NO 07-02 00:12
PROVIDERS: ADMIT Internal Medicine; ATTEND Internal Medicine
DX: I48.91 Unspecified atrial fibrillation (principal); Z68.41 Body mass index [BMI] 40.0-44.9, adult; Z20.828 Contact with and (suspected) exposure to other viral communicable diseases; E03.9 Hypothyroidism, unspecified; E78.5 Hyperlipidemia, unspecified; D50.9 Iron deficiency anemia, unspecified; H54.8 Legal blindness, as defined in USA; E66.01 Morbid (severe) obesity due to excess calories; Z79.82 Long term (current) use of aspirin; Z90.49 Acquired absence of other specified parts of digestive tract; Z90.89 Acquired absence of other organs; Z90.710 Acquired absence of both cervix and uterus
CPT/HCPCS: 36415; 71045; 71275; 80048; 80053; 81001; 82274; 82728; 83540; 83550; 83735; 83880; 84439; 84443; 84481; 84484; 85025; 87635; 93005; 93306; 96374; J1650; J2916; J3490; Q9967; U0003

== ENCOUNTER 2020-08-08 07:46 | Outpatient (CLI) | payer MEDICARE, OTHER ==
[2020-08-09 03:57] LABS: SARS-CoV-2 MS2 Positive; SARS-CoV-2 N Gene Negative; SARS-CoV-2 S Gene Negative; SARS-CoV-2 by NAA Not Detected (NotDetected); SARS-CoV-2 orf1ab Negative
== END 2020-08-08 07:47 | disposition home or self-care (01) ==
LOC: LABBT 07:46
PROVIDERS: ATTEND Internal Medicine Gastroenterology
DX: D64.9 Anemia, unspecified (principal); Z20.822 Contact with and (suspected) exposure to COVID-19
CPT/HCPCS: U0003; U0005; 87635

== ENCOUNTER 2020-08-13 07:20 | Day surgery (SDC) | payer MEDICARE ==
[2020-08-11 13:11] VITALS: BMI 41.1
--- NOTE | 2020-08-12 19:37 | HP ---
HISTORY OF PRESENT ILLNESS: A 75-year-old female hospitalized in June of 2020 with iron deficiency anemia. The patient is legally blind and cannot give a history of any rectal bleeding or melena. The patient has had a colonoscopy two years ago when she was living in [place]. The patient has had a stool exam done, which came back negative for occult blood. The patient has no abdominal pain. No nausea or vomiting. The patient comes to the EGD because of unexplained iron deficiency anemia. ALLERGIES: NONE. SOCIAL HISTORY: She is . Does not smoke or drink alcohol. MEDICAL ILLNESS: 1. Hypothyroidism. 2. Hypertension. 3. Legally blind. 4. Iron deficient anemia. PHYSICAL EXAMINATION: VITAL SIGNS: Pulse is 70 and blood pressure 130/70. HEENT: Conjunctivae are clear. CARDIOVASCULAR SYSTEM: Normal heart sounds. LUNGS: Clear to auscultation. ABDOMEN: Soft. No organomegaly. No tenderness. No masses. ADMITTING DIAGNOSIS: A 75-year-old female with iron deficiency anemia. No history of blood loss. She had a colonoscopy two years ago, which was negative. The patient had a cardiac evaluation by Dr. Milan for palpitation and has had a Holter monitor study. The patient is totally asymptomatic at the present time. The patient will have an esophagogastroduodenoscopy because of unexplained anemia. Job ID: [id number]
[2020-08-13] MEDS ORDERED: PROPOFOL 200 MG/20 ML VIAL ONE (10:15)
[2020-08-13] MEDS ORDERED: Lidocaine 1% PF 5 ML VIAL ONE (10:15)
[2020-08-13 10:32] LABS: Hemoglobin 13.6 g/dL (12.0-16.0); Mean Corpuscular HGB CONC 30.7 g/dL (32.0-36.0); Mean Corpuscular Hemoglobin 29.4 pg (27.0-31.0); Mean Platelet Volume 10.1 fL (7.4-10.4); Platelet Count 196 thou/uL (130-400); RBC Distribution Width 22.5 % (11.5-14.5); Red Blood Cell (RBC) Count 4.61 mill/uL (4.20-5.40); White Blood Cell (WBC) Count 8.6 thou/uL (4.8-10.8)
[2020-08-13 11:05] LABS: Anion Gap 11 mmol/L (10-20); BUN (Urea Nitrogen) 14 mg/dL (9.8-20.1); Calc. Creatinine Clearance 110 mL/min (70-130); Calcium 8.5 mg/dL (7.8-10.44); Carbon Dioxide 26 mmol/L (23-31); Chloride 107 mmol/L (98-107); Glucose 103 mg/dL (83-110); Potassium 4.4 mmol/L (3.5-5.1); Sodium 140 mmol/L (136-145)
--- NOTE | 2020-08-13 13:56 | CT ---
EXAM: CT ABDOMEN AND PELVIS HISTORY: Possible duodenal mass. Patient had a EGD today. COMPARISON: None. Procedure: Multiple contiguous axial images were obtained and a CT of the abdomen and pelvis with IV contrast. C oronal reformats were performed. FINDINGS: Lower Chest: within normal limits. Vessels: No aneurysm or dissection Heart: Normal heart size. No significant pericardial fluid Abdomen: Portal vein:Patent Gallbladder: Surgically absent Liver: within normal limits. Pancreas: within normal limits. Spleen: within normal limits. Adrenals: within normal limits. Kidneys: Symmetric enhancement. No obstructive uropathy. There appear to be left parapelvic cysts. Peritoneum: No ascites or free air, no fluid collection. Bowel: Gastric cardia mucosa is unremarkable. Heterogeneous attenuation in the gastric antrum may rep resent a soft tissue mass measuring 3.0 x 3.1 cm. Obvious duodenal mass is not appreciated. Multiple normal caliber small bowel loops. Normal ileocecal junction. Appendix is not appreciated. No significant inflammation of the cecal apex. There is contrast in a nondistended, nondilated colon. Occasional diverticulum. No diverticulitis. Mesentery and Retroperitoneum: No enlarged mesenteric or retroperitoneal lymph nodes. Abdominal Wall: Small umbilical hernia containing mesenteric fat. Pelvis: Reproductive Organs: Uterus is surgically absent. Pelvis: No mass, lymphadenopathy, free air or free fluid. Bladder: within normal limits. Bones: within normal limits. IMPRESSION: 1. Possible soft tissue mass in the gastric antrum. Refer to recent endoscopy report for further deta il.
[2020-08-13] MEDS ORDERED: Iopamidol 370 76% 50 ML VIAL FS ONE (14:17)
[2020-08-13] MEDS ORDERED: Iopamidol-370 76% 500 ML 1 ML ONE (14:17)
--- NOTE | 2020-08-13 20:03 | OP ---
DATE OF PROCEDURE: 08/13/2020 OPERATIVE PROCEDURE: Esophagogastroduodenoscopy with biopsy. PREOPERATIVE DIAGNOSIS: A 75-year-old female with iron deficiency anemia. She had a negative colonoscopy two years ago in [place]. The patient had no specific gastrointestinal symptoms. She underwent esophagogastroduodenoscopy because of anemia. POSTOPERATIVE DIAGNOSES: 1. Normal esophageal mucosa. 2. Hiatus hernia. 3. Small gastric polyp of the gastric body. 4. Large friable polypoid lesion in the duodenal bulb just past the pyloric opening. DESCRIPTION OF PROCEDURE: The patient was placed on her left lateral position and was given sedation by Anesthesia Department. A Pentax video gastroscope under direct vision passed down the oropharynx past the GE junction into the stomach and subsequently descending duodenum. The vocal cords appeared very healthy. The esophageal mucosa appears normal throughout the esophagus. The GE junction, no lesion seen. The patient had a hiatus hernia measuring approximately about 2 cm. Retroflexion failed to show any pathology in fundus or cardia. Over the proximal gastric body, the patient already had a small polyp. Not biopsied. The gastric body, otherwise, no lesion seen. The incisura angularis and gastric antrum, no lesion seen. The retroflexion of scope in the stomach failed to show any pathology in the fundus or cardia. The scope was advanced near the polyp opening could see a large friable polypoid lesion in the duodenal bulb. The lesion occupies probably about one-half of the entire lumen. It is almost apple-core lesion. There was some friability and some mild oozing of blood noted. In the descending duodenum, no lesion seen. Biopsies obtained from the duodenal biopsy. The stomach decompressed and the scope removed. DISCHARGE PLANNING: This is a 75-year-old female, came for EGD because of anemia. The EGD showed a polypoid lesion in the duodenal bulb. This was biopsied. DISCHARGE RECOMMENDATIONS: 1. Obtain CBC and Chem-7. 2. We will plan to obtain a CAT scan of the abdomen in the near future. The patient will need surgical referral. Because of the location of the lesion, she might need to extend the surgery like Whipple. We will [facility] and also in her operative report to her primary care doctor in [place]. Job ID: [id number]
== END 2020-08-13 13:46 | disposition home or self-care (01) ==
LOC: SDC 07:20
PROVIDERS: ATTEND Internal Medicine Gastroenterology
PROC: 0DB98ZX Excision of Duodenum, Via Natural or Artificial Opening Endoscopic, Diagnostic (ICD-10-PCS; principal; 2020-08-13)
DX: C17.0 Malignant neoplasm of duodenum (principal); K31.7 Polyp of stomach and duodenum; K44.9 Diaphragmatic hernia without obstruction or gangrene; D50.9 Iron deficiency anemia, unspecified; E89.0 Postprocedural hypothyroidism; I10 Essential (primary) hypertension; H54.8 Legal blindness, as defined in USA; Z79.82 Long term (current) use of aspirin; Z79.899 Other long term (current) drug therapy
CPT/HCPCS: 74177; 80048; 85027; 88305; J2704; Q9967